=== PATIENT | female | born 1960 | race Caucasian/White ===

== ENCOUNTER → 2016-07-07 | Outpatient (CLI) | payer OTHER ==
[~2016-07-07] MED LIST: ACETAMINOPHEN PO; ALB/IPRATROPIUM/1 E1 PO; ALBUTEROL 0.5ML INH; ALBUTEROL17 GM INH; ALDACTONE PO; AMBIEN PO; ASPIRIN EC81 M1 PO; ATARAX PO; ATROVENT HFA12.9 G1 IH; AUGMENTIN875 M1 PO; CALCIUM 5001 TAB PO; CALCIUM CARBONA1 TAB PO; CERTAGEN PO; CIPRO PO; ERYTHROMYCIN250 M1 PO; FLEXERIL10 MG PO; FOLIC ACID PO; FOLIC ACID1 MG PO; GUAIFENESIN LA600 M1 PO; HYDROCODON-ACE1 EAC1 PO; KCL PO; LASIX20 MG PO; LEVAQUIN PO; LOPERAMIDE HCL2 M1 DOB; NICOTINE TRANSD21 MG EXT; NO MEDICATIONS; ORUDIS75 M1 DOB; OXYCODONE HCL5 MG PO; PREDNISONE PO; PROAIR HFA8.5 GM INH; PROTONIX PO; QVAR7.3 G1 IH; SYMBICORT INH; SYNTHROID PO; THIAMINE HCL100 MG PO; VICODIN 5/1 TAB 5/50 PO; VITAMIN D2400 UNIT PO; VITAMIN D350000 UNIT PO; VITAMIN D50000 UNIT PO; ZITHROMAX500 MG PO; ZOFRAN PO
--- NOTE | ~2016-07-07 | CT55 ---
[facility] A Service of [facility] RADIOLOGY TEXT RESULTS PATIENT: JMAES MAYA LOCATION: [facility] : 58 UNIT #: [id number] AGE: [address]: Drew Plascencia MD SEX: F ORDER DR: [id number] [facility]. [place], [place] [address] [id number] O MR#: [id number] Acc #: [id number] NAME: JAMES MAYA : 1960 SEX: F STUDY DATE/TIME: 07/07/2016 12:13 UNIT: [facility] ROOM: STUDY DESCRIPTION: CT Chest W Con Attending Physician: Drew Plascencia M.D. Referring Physician: Drew Plascencia M.D. Ordering Physician: Drew Plascencia M.D. Primary Care Physician: No Primary Care Physician MEDICAL IMAGING REPORT This report is preliminary unless electronic signature is present EXAM Chest CT with contrast. HISTORY Lung cancer diagnosed in 2016. Chronic short of breath. Recent onset of cough. TECHNIQUE Axial images were obtained through the chest with contrast. 70 mL of Isovue was used. Images were evaluated at lung and mediastinal windows. This CT exam was performed with one or more of the following radiation dose reduction techniques: automatic exposure control, adjustment of mA and/or kV according to patient size, and iterative reconstruction. COMPARISON Comparison scan from 01/09/2016. FINDINGS Chest images at mediastinal window show no enlarged mediastinal or hilar lymph nodes. There is no evidence of pleural of pericholecystic fluid. No adrenal masses are seen. Lung window imaging demonstrates emphysema. Again noted is an area of spiculated mass-like density in the right mid lung field anteriorly. It is unchanged in size from the previous examination, measuring about 1.4 x 2 cm. No new or enlarging masses are seen in either lung. Multiple calcified granulomas are noted at the left lung base. There is a small infiltrate in the left lower lobe behind the hilum. This was also present on the previous examination. If anything, it is less prominent on the current study. IMPRESSION [facility] A Service of [facility] RADIOLOGY TEXT RESULTS PATIENT: JAMES MAYA LOCATION: [facility] : 58 UNIT #: [id number] AGE: [address]: Drew Plascencia MD SEX: F ORDER DR: Emphysema. No new infiltrates are seen since the previous examination. There is a dense area of consolidation in the right mid lung field anteriorly that is unchanged, and there is a small infiltrate behind the left hilum that is no worse and probably slightly better since the previous exam. Dictated by... Pancho Montgomery M.D. THIS IS AN ELECTRONICALLY VERIFIED REPORT Pancho Montgomery M.D. at 07/08/2016 8:03 AM CECIL/debra TD: 07/07/2016 18:53 JOB #: [id number] MEDICAL IMAGING REPORT Page 1 of 1 COPY
[2016-07-07 13:30] LABS: POC - CREATININE 0.91 mg/dL (0.44-1.03); POC - GFR >60.0 mL/min (>60)
== END | disposition home or self-care (01) ==
LOC: CCAT 10:39
PROVIDERS: Radiology Radiation Oncology
DX: C34.2 Malignant neoplasm of middle lobe, bronchus or lung (principal); J43.9 Emphysema, unspecified; J18.1 Lobar pneumonia, unspecified organism; R91.8 Other nonspecific abnormal finding of lung field
CPT/HCPCS: 71260; 82565; Q9967

== ENCOUNTER → 2016-10-07 | Outpatient (CLI) | payer OTHER ==
--- NOTE | ~2016-10-07 | CT55 ---
[facility] A Service of [facility] RADIOLOGY TEXT RESULTS PATIENT: JAMES MAYA [facility] : 58 UNIT #: [id number] AGE: [address]: Michelet Espinoza MD SEX: F ORDER DR: [id number] [facility] [address] [facility]. [place], [place] [address] [id number] O MR#: [id number] [facility] #: [id number] NAME: JAMES MAYA : 1960 SEX: F STUDY DATE/TIME: 10/07/2016 14:37 UNIT: [facility] ROOM: STUDY DESCRIPTION: CT Chest W Con Attending Physician: Michelet Espinoza M.D. Ordering Physician: Michelet Espinoza M.D. 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 Patient presents for observation for suspected malignant neoplasm. Patient has had both chemo and radiation therapy. COMPARISON Chest CT 07/07/2016 and 01/09/[address] images were obtained from the thoracic inlet through the adrenal glands. Sagittal and coronal reconstructions were performed. Contrast was Isovue-370, 100 mL IV. Total exam DLP 470 mGy-cm. This CT exam was performed with one or more of the following radiation dose reduction techniques: automatic exposure control, adjustment of mA and/or kV according to patient size, and iterative reconstruction. FINDINGS Images through the thoracic inlet are negative. There is a port catheter in the right anterior chest wall with tip terminating in the SVC just above the right atrium. The aorta, pulmonary arteries, cardiac chambers and pericardium are normal. There is a very small hiatal hernia without change. There is no pathologic adenopathy. The lungs demonstrate underlying emphysematous change. There is band-like density in the right middle lobe consistent with atelectasis and STS. [facility] A Service of [facility] RADIOLOGY TEXT RESULTS PATIENT: JAMES MAYA [facility] : 58 UNIT #: [id number] AGE: [address]: Michelet Espinoza MD SEX: F ORDER DR: postradiation change. Within this area there is a 1.8 x 1.3 cm nodular area corresponding to the 1.9 x 1.4 cm area previously felt stable to minimally improved. There are multiple calcified granulomata in the lower lobes, left greater than right. There is minimal linear density in the superior segment left lower lobe medially posterior to the left hilum which is unchanged. There are no effusions. Limited views through the upper abdomen demonstrate a normal appearance to the liver and adrenal glands. Bone window images demonstrate stable endplate degenerative changes throughout the thoracic spine with multiple Schmorl's nodes. There is no fracture, lytic or blastic change. IMPRESSION 1. Ovoid mass in the right middle lobe is stable to minimally decreased measuring 1.9 x 1.3 cm, previously 1.9 x 1.4 cm. 2. Multiple calcified granulomata are present. 3. Stable reticular change in the medial aspect superior segment left lower lobe posterior to the left hilum, likely chronic scar. 4. No adenopathy or pleural effusion. 5. The visualized portions of the liver, adrenal glands and bones appear normal. Dictated by... Sarika Kirkpatrick M.D. THIS IS AN ELECTRONICALLY VERIFIED REPORT Sarika Kirkpatrick M.D. at 10/08/2016 8:41 PM Veronika TD: 10/08/2016 14:52 JOB #: [id number] MEDICAL IMAGING REPORT Page 1 of 1 COPY
[2016-10-07 15:21] LABS: POC - CREATININE 1.03 mg/dL (0.44-1.03)
== END | disposition home or self-care (01) ==
LOC: CCAT 13:23
PROVIDERS: Internal Medicine Hematology
DX: C34.2 Malignant neoplasm of middle lobe, bronchus or lung (principal); D75.1 Secondary polycythemia; Z43.9 Encounter for attention to unspecified artificial opening; R91.8 Other nonspecific abnormal finding of lung field; J84.10 Pulmonary fibrosis, unspecified
CPT/HCPCS: 71260; 82565; Q9967